=== PATIENT | female | born 1945 | race Caucasian/White ===

== ENCOUNTER 2018-10-09 21:12 | Emergency (ER) | payer MEDICARE, OTHER ==
[~2018-10-09] VITALS: Ht 165.1 cm; Wt 74.4 kg
[~2018-10-09 21:12] MED LIST: ALBU2.5V5 NEB; AZIT250T6 PO; BREO ELLIPTA 11 EACH IH; CLOP75TA PO; DABI150C PO; DIGO125T10 PO; DILT240C2 PO; DOXE50CA PO; DULO30CA44 PO; DULO60CA45 PO; IPRA4AER IH; LEVO50TA5 PO; METH500T7 PO; OXYC-411 PO; OXYC30TA64 PO; VENTOLIN HFA18 GM IH; [UNRECOGNIZED DRUG - REMARK]
[2018-10-09] MEDS ORDERED: DIPHTH,PERTUSS(ACELL),TET TOX 0.5 ML DISP.SYRIN. VAX IM ONE (22:30)
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
[2018-10-09 22:45] VITALS: BP 100/63
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
== END 2018-10-09 23:30 | disposition home or self-care (01) ==
LOC: ER 21:12
DX: S40.022A Contusion of left upper arm, initial encounter (principal); S09.90XA Unspecified injury of head, initial encounter; M25.532 Pain in left wrist; M54.2 Cervicalgia; R51 Headache; I48.91 Unspecified atrial fibrillation; J44.9 Chronic obstructive pulmonary disease, unspecified; I10 Essential (primary) hypertension; Z88.1 Allergy status to other antibiotic agents; Z91.040 Latex allergy status; W01.198A Fall on same level from slipping, tripping and stumbling with subsequent striking against other object, initial encounter; Y93.89 Activity, other specified; Y92.098 Other place in other non-institutional residence as the place of occurrence of the external cause; Y99.8 Other external cause status
CPT/HCPCS: 70450; 70486; 72125; 73110; 90471; 90715; 99285-25

== ENCOUNTER 2020-08-10 16:50 | Observation (INO) | payer MEDICARE ==
[~2020-08-10] VITALS: Ht 172.7 cm; Wt 80.1 kg
[~2020-08-10 16:50] MED LIST changes: +AMOX1TAB58 PO; +AMOX1TAB61 PO; +CEFD300C PO; +CHOL200078 PO; +DOCU-109 PO; +DOXY100T PO; +FLUT1BLS9 IH; +FURO20TA3 PO; +LEVO25TA4 PO; +METH-561 PO; -METH500T7 PO; +METO50TA4 PO; +MOME17SP NS; +ONDA4TAB7 PO; -OXYC-411 PO; +OXYC10TA PO; +OXYC1TAB20 PO; +PANT40TA77 PO; +POTA10TA6 PO; +RIVA20TA2 PO; +ROFL500T7 PO; +TRAZ-123 PO; +UMEC62.5 IH
[2020-08-10] MEDS ORDERED: diphenhydrAMINE 50 MG/ML VIAL IVP ONE (17:00)
[2020-08-10] MEDS ORDERED: DEXAMETHASONE SOD PHOS 20 MG/5 ML VIAL. IV ONE (17:00)
[2020-08-10] MEDS ORDERED: PROCHLORPERAZINE 10 MG/2 ML VIAL. IV ONE (17:00)
[2020-08-10] MEDS ORDERED: IV RINGERS,LACTATED 1000ML 1,000 ML IV SCH (17:00)
[2020-08-10] MEDS ORDERED: FLUORESCEIN OPHTH TEST STRIP. OD ONE (17:15)
[2020-08-10] MEDS ORDERED: TETRACAINE 0.5% OPHTH SOLUTION 4ML BOTTLE. OD ONE (17:15)
--- NOTE | 2020-08-10 17:26 | RAD ---
Exam Date: 08/10/2020 5:16 PM XR CHEST 1V Indication: Reason: headache / Spl. Instructions: / History: Comparison: February 02, 2020 FINDINGS/ IMPRESSION: The cardiac silhouette is enlarged without significant congestion. Prominent interstitial markings ar e improved compared to the prior exam and may reflect chronic lung disease, interstitial edema, or in terstitial pneumonia. Calcified granulomas are seen in the lungs. There is no focal consolidation, pleural effusion or pneumothorax. Electronically signed by: Mario Pearce MD (08/10/2020 5:23 PM) [facility]
--- NOTE | 2020-08-10 17:42 | PHYS DOC ---
Past Medical History Past Medical History: A-Fib, Arthritis, CHF, COPD, Fibromyalgia, GERD, Hy pertension, Hypothyroid, Other Additional Past Medical Histor: radicular neuropathy (DAVION ARRIETA DO) Past Surgical History: Cholecystectomy (DAVION ARRIETA DO) Smoking Status: Current Every Day Smoker Alcohol Use: None Drug Use: None (DAVION ARRIETA DO) General Adult EDM: Chief Complaint: HEADACHE HPI: HPI: 74-year-old female past medical history of hypertension, hyperlipidemia and A. fib on Pradaxa, CHF, COPD and hypothyroidism presents the ED with her daughter (patient consents to his/her/their knowledge and involvement in pts' medical care), complaints of right eye pain and headache that started around 1:30 AM and woke patient up. Initially thought something was in her right eye and that she was having a migraine (but reports this is the "worst headache"). Reports associated epiphora, decreased sleep, right nostril rhinorrhea/clear fluid. No relief with Tylenol, aspirin, caffeine pills around 2:30 AM-started to have associated nausea at 2:30am. Was able to fall asleep around 7:30 AM. Took oxycodone 20 mg immediate relief and has not had any pain relief. Now complains of blurry vision in her right eye. Unknown right eye baseline vision but reports no contact lenses or glasses. (DAVION ARRIETA DO) Review of Systems: Review of Systems: Constitutional: Denies fever or chills. [] Eyes: Denies eye discharge or complete vision loss HENT: Denies nasal congestion or sore throat. [] Respiratory: Denies cough or shortness of breath. [] Cardiovascular: Denies chest pain or edema. [] GI: Denies abdominal pain,vomiting, : Denies dysuria or hematuria Musculoskeletal: Denies back pain or joint pain. [] Integument: Denies rash or diaphoresis Neurologic: Denies neck stiffness, focal weakness or sensory changes. [] Psychiatric: Denies depression or anxiety. [] (DAVION ARRIETA DO) Heart Score: C/O Chest Pain: No Risk Factors: Risk Factors: DM, Current or recent (<one month) smoker, HTN, HLP, family history of CAD, obesity. Risk Scores: Score 0 - 3: 2.5% MACE over next 6 weeks - Discharge Home Score 4 - 6: 20.3% MACE over next 6 weeks - Admit for Clinical Observation Score 7 - 10: 72.7% MACE over next 6 weeks - Early Invasive Strategies (DAVION ARRIETA DO) Current Medications: Current Medications Medications (Trade) Dose Ordered Sig/Mel Start Time Stop Time Status Last Admin Dose Admin Dexamethasone Sodium Phosphate (Decadron) 10 mg 1X ONCE 08/10/20 17:00 08/10/20 17:04 DC Diphenhydramine HCl (Benadryl) 25 mg 1X ONCE 08/10/20 17:00 08/10/20 17:04 DC Fluorescein Sodium (Ful-Anabelle) 1 strip 1X ONCE 08/10/20 17:15 08/10/20 17:16 DC Prochlorperazine Edisylate (Compazine) 10 mg 1X ONCE 08/10/20 17:00 08/10/20 17:04 DC Ringer's Solution 1,000 ml @ 1,000 mls/hr Q1H 08/10/20 17:00 08/10/20 17:59 Tetracaine HCl (Tetracaine) 1 drop 1X ONCE 08/10/20 17:15 08/10/20 17:16 DC (DAVION ARRIETA DO) Allergies: Allergies: Allergies Coded Allergies Type Severity Reaction Last Updated Verified ciprofloxacin Allergy Intermediate Swelling 03/19/15 Yes latex Allergy Intermediate Rash 03/19/15 Yes levofloxacin Allergy Intermediate Swelling 03/19/15 Yes (DAVION ARRIETA DO) Physical Exam: PE: Constitutional: appears uncomfortable but not-toxic appearance. HENT: Normocephalic, atraumatic, no signs of head trauma Eyes: squinting in ed room-right eye only, right eye w/ conjunctival injection, minimally responsive right pupil when compared to left-cannot appreciate a hazy pupil, EOMI, no discharge, no active epiphora, no hyphema or hypopyon Neck: Normal range of motion, supple, Cardiovascular: S1/2 present, regular rhythm Lungs & Thorax: Speaking in full sentences, bilateral equal chest rise, no tachypnea or increased work of breathing Abdomen: soft, no tenderness, Skin: Warm, dry, no erythema, no rash. [] Extremities: No tenderness, no cyanosis, Neurologic: Alert and oriented X 3, no focal deficits noted. [] Psychologic: Affect normal, judgement normal, mood normal. [] (DAVION ARRIETA DO) PE: Constitutional: Well developed, well nourished, uncomfortable HENT: Normocephalic, atraumatic Eyes: Right periorbital edema, NO red reflex to right eye, EOMI, conjunctiva significantly infected to right eye with chemosis and hazy cornea, no discharge, no fluorescein uptake, Tonopen measurements of right eye 58, 54, 58 Neck: Normal range of motion, no tenderness, supple Lungs & Thorax: No respiratory distress, equal chest rise and fall Skin: Warm, dry, no erythema, no rash Neurologic: Alert and oriented X 3, no focal deficits noted Psychologic: Affect normal, judgment normal (MARY BRAR DO) EKG: EKG: A. fib at 120 bpm, no axis deviation, QTC 500, no obvious T wave inversions, ST elevations or ST depressions, no associated chest pain (DAVION ARRIETA DO) Radiology/Procedures: Radiology/Procedures: []IMAGING REPORT Signed PATIENT: CODY NINA ACCOUNT: [id number] : 1945 LOCATION: ER AGE: 74 SEX: F EXAM STATUS: PRE ER ORD. PHYSICIAN: DAVION ARRIETA DO REASON: headache PROCEDURE: PORTABLE CHEST 1V Exam Date: 08/10/2020 5:16 PM XR CHEST 1V Indication: Reason: headache / Spl. Instructions: / History: Comparison: February 02, 2020 FINDINGS/ IMPRESSION: The cardiac silhouette is enlarged without significant congestion. Prominent interstitial markings are improved compared to the prior exam and may reflect chronic lung disease, interstitial edema, or interstitial pneumonia. Calcified granulomas are seen in the lungs. There is no focal consolidation, pleural effusion or pneumothorax. Electronically signed by: Vanesa Pearce MD (08/10/2020 5:23 PM) [facility] DICTATED and SIGNED BY: VANESA PEARCE MD DATE: 08/10/20 [id number] (DAVION ARRIETA DO) Radiology/Procedures: PROCEDURE: PORTABLE CHEST 1V Exam Date: 08/10/2020 5:16 PM XR CHEST 1V Indication: Reason: headache / Spl. Instructions: / History: Comparison: February 02, 2020 FINDINGS/ IMPRESSION: The cardiac silhouette is enlarged without significant congestion. Prominent interstitial markings are improved compared to the prior exam and may reflect chronic lung disease, interstitial edema, or interstitial pneumonia. Calcified granulomas are seen in the lungs. There is no focal consolidation, pleural effusion or pneumothorax. Electronically signed by: Vanesa Pearce MD (08/10/2020 5:23 PM) [facility] PROCEDURE: CT HEAD & ORBITS WO CONTRAST EXAM: CT head and orbits without contrast INDICATION: Headache, right eye pain COMPARISON: CT head 10/09/2018 TECHNIQUE: Axial CT imaging through the head and cervical spine without intravenous contrast. Sagittal and coronal reformats were obtained. One or more of the following individualized dose reduction techniques were utilized for this examination: 1. Automated exposure control 2. Adjustment of the mA and/or kV according to patient size 3. Use of iterative reconstruction technique. FINDINGS: CT head: The ventricles and sulci are prominent. There is mild periventricular white matter hypoattenuation. Valdez-white matter differentiation is maintained. There is no intracranial hemorrhage, acute infarct, or mass lesion. The calvarium is intact. CT orbits: The exam is limited by motion artifact. Globes are intact. Extraocular muscles and optic nerve sheath complexes are unremarkable. There is mild right periorbital soft tissue swelling. There is no acute fracture. Findings of ch ronic sinusitis in the small left sphenoid sinus with osteitis and mild mucosal thickening is unchanged. The remaining paranasal sinuses and mastoid air cells are clear. IMPRESSION: 1. No acute intracranial abnormality. 2. Mild right periorbital soft tissue swelling. 3. Chronic left sphenoid sinusitis. Electronically signed by: Gaye White MD (08/10/2020 6:37 PM) [id number] (MARY BRAR DO) Course & Med Decision Making: Course & Med Decision Making Pertinent Labs and Imaging studies reviewed. (See chart for details) Pt presents with severe headache and red, right eye pain for more than 12 hours, acute closure glaucoma highly suspicious. RN unable to find tonopen in ed (I later found in rapid care while leaving ed and handed to Dr. Brar). At shift change pt was in CT and rn reported visual acuity. Floresceine/slade lamp exam still pending. I signed out pt to oncoming provider, Dr. Brar who was aware of ocular emergency and would call optho. Pt was stable at time of shift change. (DAVION ARRIETA DO) Course & Med Decision Making 1800- Sign out received from Dr. Arrieta for patient with sudden right eye pain and decreased vision which started at 0200. Hx of CHF and HTN. Labs and CT imaging ordered by Dr. Arrieta. Headache cocktail ordered. Patient pending laboratory and radiological imaging. Physical exam also concerning for glaucoma. Tetracaine and fluoreceine ordered by Dr. Arrieta but not yet performed. Patient seen and evaluated by myself. Tonopen meausurements elevated up to 58. Timolol 0.5% gtt given to right eye and acetazolamide PO also given. Discussed case with Dr. Peter (ophthalmology) regarding. Recommends to also add Alphagan gtt and give IV Mannitol. Given patient's past medical history, recommends that patient be admitted overnight for monitoring with continued eye gtts and acetazolamide and will see patient in office tomorrow to evaluate for need for laser treatment. Patient requiring admission for further evaluation and treatment. Discussed with Dr. Heart (hospitalist) who is in agreement with admission. Discussed findings and plan with patient and family, who acknowledge understanding and agreement. (MARY BRAR DO) Dragon Disclaimer: Bhavna Disclaimer: This electronic medical record was generated, in whole or in part, using a voice recognition dictation system. (DAVION ARRIETA DO) Departure Departure Impression: Primary Impression: Acute angle-closure glaucoma of right eye Disposition: ADMITTED INPATIENT (observation) Admitting Physician: KARL (Sly) (MARY BRAR DO) Condition: STABLE Referrals: SERGEY CAMPOS MD (PCP) Scripts Acetazolamide (ACETAZOLAMIDE) 250 Mg Tablet 250 MG PO QID for glaucoma for 7 Days, #28 TAB Prov: CASTLE,NIAL K III DO 08/11/20 Timolol Maleate (Timolol Maleate) 5 Ml Drops 1 DROP OU BID for glaucoma for 30 Days, #1 DROP Prov: CASTLE,NIAL K III DO 08/11/20 Brimonidine Tartrate (BRIMONIDINE TARTRATE) 5 Ml Drops 1 DROP OU Q8HRS for glaucoma for 30 Days, #1 DROP Prov: ISAAC MUSTAFAOz Radha ARLETTE REAL 08/11/20 Critical Care Time Critical care time was 30 minutes which includes time at bedside, spent in discussion of patient's care with specialists and/or family members, with interpretation of laboratory and/or radiological studies and is exclusive of procedures. (MARY BRAR DO) Critical Care Time Critical care time was [] minutes exclusive of procedures. (DAVION ARRIETA DO) DAVION ARRIETA DO Aug 10, 2020 17:42 MARY BRAR DO Aug 10, 2020 20:28
--- NOTE | 2020-08-10 18:11 | EKG ---
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
[2020-08-10 18:20] LABS: CALCIUM 9.4 mg/dL (8.5-10.1); CREATININE 1.1 mg/dL (0.6-1.0); GFR 48.6; POTASSIUM 3.8 mmol/L (3.5-5.1)
[2020-08-10 18:22] LABS: PROTHROMBIN TIME PATIENT 13.8 SEC (11.7-14.0)
[2020-08-10 18:25] LABS: ALBUMIN 3.4 g/dL (3.4-5.0); ALBUMIN/GLOBULIN RATIO 0.9 (1.0-1.7); TOTAL BILIRUBIN 0.3 mg/dL (0.2-1.0)
[2020-08-10 18:31] LABS: BASO % 0 % (0-3); EOS % 0 % (0-3); HEMATOCRIT 34.9 % (36.0-47.0); HEMOGLOBIN 11.6 g/dL (12.0-15.5); LYMPH # 0.8 x10^3/uL (1.0-4.8); LYMPH % 11 % (24-48); MEAN CORPUSCULAR HEMOGLOBIN 28 pg (25-35); MEAN CORPUSCULAR HGB CONC 33 g/dL (31-37); MEAN CORPUSCULAR VOLUME 86 fL (79-100); MONO # 0.2 x10^3/uL (0.0-1.1); MONO % 2 % (0-9); NEUT # 6.7 x10^3/uL (1.8-7.7); NEUT % 87 % (31-73); PLATELET COUNT 254 x10^3/uL (140-400); RED BLOOD COUNT 4.08 x10^6/uL (3.50-5.40); RED CELL DISTRIBUTION WIDTH 13.6 % (11.5-14.5); WHITE BLOOD COUNT 7.7 x10^3/uL (4.0-11.0)
--- NOTE | 2020-08-10 18:39 | RAD ---
EXAM: CT head and orbits without contrast INDICATION: Headache, right eye pain COMPARISON: CT head 10/09/2018 TECHNIQUE: Axial CT imaging through the head and cervical spine without intravenous contrast. Sagitta l and coronal reformats were obtained. One or more of the following individualized dose reduction techniques were utilized for this examinat ion: 1. Automated exposure control 2. Adjustment of the mA and/or kV according to patient size 3. Use of iterative reconstruction technique. FINDINGS: CT head: The ventricles and sulci are prominent. There is mild periventricular white matter hypoattenuation. G latoya-white matter differentiation is maintained. There is no intracranial hemorrhage, acute infarct, o r mass lesion. The calvarium is intact. CT orbits: The exam is limited by motion artifact. Globes are intact. Extraocular muscles and optic nerve sheath complexes are unremarkable. There is mild right periorbital soft tissue swelling. There is no acute fracture. Findings of chronic sinusitis in the small left sphenoid sinus with osteitis and mild mucos al thickening is unchanged. The remaining paranasal sinuses and mastoid air cells are clear. IMPRESSION: 1. No acute intracranial abnormality. 2. Mild right periorbital soft tissue swelling. 3. Chronic left sphenoid sinusitis. Electronically signed by: Gaye White MD (08/10/2020 6:37 PM) [id number]
[2020-08-10] MEDS ORDERED: TIMOLOL 0.5% OPHTH SOLUTION 5ML BOTTLE. OD ONE (18:45)
[2020-08-10] MEDS ORDERED: fentaNYL PF VIAL 100 MCG/2 ML VIAL IV ONE (18:45)
[2020-08-10] MEDS ORDERED: acetaZOLAMIDE 250 MG TABLET. PO ONE (18:45)
[2020-08-10] MEDS ORDERED: MANNITOL 25% 12.5 G/50 ML VIAL. IV ONE (19:00)
[2020-08-10 19:20] LABS: % EOS 1 % (0-5); % LYMPHS 8 % (24-48); % MONOS 2 % (0-10); % SEGS 89 % (35-66)
[2020-08-10 19:21] LABS: PLT ESTIMATE ADEQUATE (ADEQUATE)
[2020-08-10] MEDS ORDERED: MANNITOL 20% IV ONE (19:30)
[2020-08-10] MEDS ORDERED: fentaNYL PF VIAL 100 MCG/2 ML VIAL IV PRN (19:45)
[2020-08-10 20:19] LABS: BARBITURATES NEG (NEG); BENZODIAZEPINES NEG (NEG); CANNABINOIDS NEG (NEG); COCAINE NEG (NEG); METHADONE NEG (NEG); OPIATES POS (NEG); PHENCYCLIDINE NEG (NEG)
[2020-08-10 20:20] LABS: AMPHETAMINE/METHAMPHETAMINE NEG (NEG)
[2020-08-10] MEDS ORDERED: OXYC20TA PO (20:45)
[2020-08-10] MEDS: TIMOLOL 0.5% OPHTH SOLUTION 5ML BOTTLE. OU SCH (21:07)
--- NOTE | 2020-08-10 21:40 | NUR ---
ADMISSION NOTE Pt admitted to room 660 via ER cart. Pt ambulatory from cart, to bsc, then to bed. Pt is A/Ox4, MANZANITA. Pt reports pain in her right eye, that has been somewhat relieved by medications given in ER. Pt given call light and explained POC. Pt vu. Pt instructed not to get OOB without help d/t being fall risk. Pt vu, bed alarm on. Pt given soda and pudding for snack. Call light in reach. Will monitor.
[2020-08-10 21:52] VITALS: BP 146/96
[2020-08-10] MEDS ORDERED: BRIMONIDINE 0.2% OPHTH SOLUTION 5ML BOTTLE. OD SCH (22:00)
[2020-08-10] MEDS ORDERED: [UNRECOGNIZED DRUG - CODE] PO (22:15)
[2020-08-10] MEDS ORDERED: CETI10TA74 PO (22:15)
[2020-08-10] MEDS ORDERED: TIOT4MIS2 IH (22:15)
[2020-08-10] MEDS ORDERED: MAGN500C10 PO (22:15)
[2020-08-10] MEDS ORDERED: FLUT16SP NS (22:15)
[2020-08-10] MEDS ORDERED: NON FORMULARY ITEM (Albuterol Sulfate (Ventolin Hfa Inhaler) 2 PUFF) IH SCH (22:30)
[2020-08-10] MEDS ORDERED: ALBUTEROL SULFATE 2.5 MG/3 ML NEBU. NEB PRN (22:30)
[2020-08-10] MEDS ORDERED: ANTI-COAG MONITOR BY PHARMACY. MC PRN (22:45)
[2020-08-10] MEDS ORDERED: ONDANSETRON ODT 4 MG TAB.RAPDIS. PO PRN (22:45)
[2020-08-10] MEDS ORDERED: RIVAROXABAN 10 MG TABLET. PO SCH (23:00)
[2020-08-10] MEDS ORDERED: DOXEPIN HCL 25 MG CAPSULE. PO SCH (23:00)
[2020-08-10] MEDS ORDERED: DOCUSATE SODIUM 100 MG CAPSULE. PO SCH (23:00)
[2020-08-10] MEDS: acetaZOLAMIDE 250 MG TABLET. PO SCH (23:09)
[2020-08-10] MEDS: DULoxetine HCL 30 MG CAPSULE.DR PO SCH (23:09)
[2020-08-10] MEDS: BRIMONIDINE 0.2% OPHTH SOLUTION 5ML BOTTLE. OU SCH (23:11)
[2020-08-10] MEDS: oxyCODONE IR 5 MG TABLET PO PRN (23:14)
[2020-08-11 03:15] VITALS: BP 110/66
[2020-08-11] MEDS: oxyCODONE IR 5 MG TABLET PO PRN ×2 (05:52→16:42)
[2020-08-11] MEDS: BRIMONIDINE 0.2% OPHTH SOLUTION 5ML BOTTLE. OU SCH ×2 (05:53→14:07)
[2020-08-11] MEDS ORDERED: LEVOTHYROXINE 25 MCG TABLET. PO SCH (06:00)
[2020-08-11 07:00] VITALS: BP 126/77
[2020-08-11] MEDS: IPRATRPIUM/ALBUTEROL 0.5/2.5MG 3 ML NEBU. NEB SCH ×3 (07:24→15:14)
[2020-08-11] MEDS ORDERED: PANTOPRAZOLE 40 MG TABLET.DR. PO SCH (07:30)
[2020-08-11] MEDS ORDERED: BUDESONIDE 0.5 MG/2 ML NEBU. NEB SCH (08:00)
[2020-08-11] MEDS ORDERED: POTASSIUM CHLORIDE 10 MEQ TABLET.ER. PO SCH (08:00)
[2020-08-11] MEDS ORDERED: FUROSEMIDE 20 MG TABLET PO SCH (09:00)
[2020-08-11] MEDS ORDERED: FLUTICASONE 50MCG/NASAL SPRAY 16GM BOTTLE. NS SCH (09:00)
[2020-08-11] MEDS ORDERED: METOPROLOL SUCC 24HR ER 50 MG TAB.ER.24H. PO SCH (09:00)
[2020-08-11] MEDS ORDERED: NON FORMULARY ITEM (Duloxetine Hcl 60 MG) PO SCH (09:00)
[2020-08-11] MEDS ORDERED: CETIRIZINE HCL 10 MG TABLET. PO SCH (09:00)
[2020-08-11] MEDS ORDERED: ROFLUMILAST 500 MCG TABLET. PO SCH (09:00)
[2020-08-11] MEDS ORDERED: CALCIUM CARB/VIT D3 500/200 TABLET. PO SCH (09:00)
[2020-08-11] MEDS ORDERED: TIOTROPIUM BROMIDE 4 GM IH SCH (09:00)
[2020-08-11] MEDS ORDERED: MAGNESIUM OXIDE 400 MG TABLET PO SCH (09:00)
[2020-08-11] MEDS: DULoxetine HCL 30 MG CAPSULE.DR PO SCH (09:02)
[2020-08-11] MEDS: acetaZOLAMIDE 250 MG TABLET. PO SCH ×3 (09:02→16:38)
[2020-08-11] MEDS: TIMOLOL 0.5% OPHTH SOLUTION 5ML BOTTLE. OU SCH (09:04)
[2020-08-11] MEDS ORDERED: TIMO5DRO5 OU (10:52)
[2020-08-11] MEDS ORDERED: ACET250T2 PO (10:52)
[2020-08-11] MEDS ORDERED: BRIM5DRO4 OU (10:52)
[2020-08-11 11:00] VITALS: BP 118/56
--- NOTE | 2020-08-11 11:46 | SSS ---
ADMIT DATE: 08/11/2020 CHIEF COMPLAINT: Headache. HISTORY OF PRESENT ILLNESS: The patient is a pleasant 74-year-old female who presented to the ER with headache. She rated it 10/10. She took some home oxycodone that did not seem to help a lot. It was worse with moving, better with sitting still. While in the ER, she was diagnosed with acute angle glaucoma. She was placed on acetazolamide, now I am examined her on the medical floor where she is requesting discharge. We plan to have her go to ophthalmology hopefully later today. PAST MEDICAL HISTORY: AFib, arthritis, CHF, COPD, fibromyalgia, GERD, hypertension, hypothyroidism, radiculoneuropathy, cholecystectomy, tobacco abuse. ALLERGIES: CIPRO, LATEX AND LEVAQUIN. FAMILY HISTORY: Diabetes. SOCIAL HISTORY: She is retired. She does smoke. No drink or drugs. MEDICATIONS: Reviewed. Please refer to the MRAD. REVIEW OF SYSTEMS: GENERAL: No history of weight change, weakness or fevers. SKIN: No bruising, hair changes or rashes. EYES: No blurred, double or loss of vision. NOSE AND THROAT: No history of nosebleeds, hoarseness or sore throat. HEART: No history of palpitations, chest pain or shortness of breath on exertion. LUNGS: Denies cough, hemoptysis, wheezing or shortness of breath. GASTROINTESTINAL: Denies changes in appetite, nausea, vomiting, diarrhea or constipation. GENITOURINARY: No history of frequency, urgency, hesitancy or nocturia. NEUROLOGIC: Denies history of numbness, tingling, tremor or weakness. PSYCHIATRIC: No history of panic, anxiety or depression. ENDOCRINE: No history of heat or cold intolerance, polyuria or polydipsia. EXTREMITIES: Denies muscle weakness, joint pain, pain on walking or stiffness. PHYSICAL EXAMINATION: VITALS: Within normal limits and are stable. GENERAL: No apparent distress. Alert and oriented. HEENT: Normal cephalic atraumatic, external auditory canals are patent EYES: She has some slightly blurred vision on the right, but improved a lot from last night after the acetazolamide. MUSCULOSKELETAL: Well developed, well nourished, good range of motion ENDOCRINE: No thyromegaly was palpated LYMPHATICS: No cervical chain or axillary nodes were noted HEMATOPOIETIC: No bruising NECK: Supple, no JVD, no thyromegaly was noted. LUNGS: Clear to auscultation in all lung pastor without rhonchi or wheezing. HEART: RRR, S1, S2 present. Peripheral pulses intact, no obvious murmurs were noted. ABDOMEN: Soft, nontender. positive bowel sounds no organomegaly, normal bowel sounds. EXTREMITIES: Without any cyanosis, clubbing, or edema. Pedal pulses intact, Homans sign is negative. NEUROLOGIC: She has some decreased vision on the right. PSYCHIATRIC: Normal affect, normal mood. Stable. SKIN: No ulcerations or rashes, good skin turgor, no jaundice. VASCULAR: Good capillary refill, neurovascular bundle appears to be intact. LABORATORY DATA: White count 7. Electrolytes are normal. ASSESSMENT AND PLAN: Resolving acute angle glaucoma. The patient was admitted overnight for observation. This morning, she is doing great. We are going to discharge. I left a prescriptions for timolol eyedrops, acetazolamide tablets, brimonidine eyedrops. DISPOSITION: Home. ACTIVITY: As tolerated. DIET: Low sodium. DISCHARGE MEDICATIONS: Please see the MRAD. We will continue her home medications including albuterol, calcium, Zyrtec 10 a day, Cardizem 240 a day, docusate 100 p.o. at bedtime, doxepin 150 every day, Cymbalta 60 b.i.d., fluticasone, Lasix 20 a day, Synthroid 25 a day, Atrovent, magnesium oxide 500 daily, metoprolol XL 50 a day, Zofran 4 q.6 hours, oxycodone 20 q.6 hours p.r.n., Protonix 40 a day, potassium chloride 10 a day, Xarelto 1 p.o. at bedtime, Daliresp, Spiriva and trazodone 100 at bedtime. DISCHARGE DIAGNOSES: History of chronic obstructive pulmonary disease, asthma, osteoporosis, allergic rhinitis, hypertension, depression, anxiety, hypothyroidism, constipation, arthritis, chronic pain, gastroesophageal reflux disease and chronic anticoagulation. Total time [address]: Michael TID: [id number]
--- NOTE | 2020-08-11 12:56 | NUR ---
SW following. Discussed with RN, pt from home with daughter. Gets around fine per RN. Discharge order for home with self care. Pt needs to follow up with an [employer] science reader. RN advised no SW needs at this time.
[2020-08-11 15:00] VITALS: BP 99/53
--- NOTE | 2020-08-11 17:45 | NUR ---
Discharge Note: CODY NINA Discharge instructions and discharge home medications reviewed with Patient and Family Member and a copy given. All questions have been answered and understanding verbalized. The following instructions and handouts were given: discharge instructions, new prescriptions, education and follow up recommendation. Discontinued lines and drains: Peripheral IV discontinued intact. Patient discharged to Home or Self Care with Family Member via Wheelchair
[2020-08-11] MEDS ORDERED: RIVAROXABAN PO SCH (21:00)
== END 2020-08-11 17:45 | disposition home or self-care (01) ==
LOC: ER 16:50 → 6 SOUTH 20:54
PROVIDERS: ADMIT Family Medicine; ATTEND Family Medicine
DX: R51.9 Headache, unspecified (principal); I11.0 Hypertensive heart disease with heart failure; I50.9 Heart failure, unspecified; J44.9 Chronic obstructive pulmonary disease, unspecified; H40.211 Acute angle-closure glaucoma, right eye; I48.91 Unspecified atrial fibrillation; M81.0 Age-related osteoporosis without current pathological fracture; H04.209 Unspecified epiphora, unspecified side; J32.3 Chronic sphenoidal sinusitis; J84.10 Pulmonary fibrosis, unspecified; M79.7 Fibromyalgia; F41.9 Anxiety disorder, unspecified; F32.9 Major depressive disorder, single episode, unspecified; K21.9 Gastro-esophageal reflux disease without esophagitis; M19.90 Unspecified osteoarthritis, unspecified site; R79.1 Abnormal coagulation profile; E03.9 Hypothyroidism, unspecified; E78.5 Hyperlipidemia, unspecified; F17.200 Nicotine dependence, unspecified, uncomplicated; Z79.01 Long term (current) use of anticoagulants; Z90.49 Acquired absence of other specified parts of digestive tract
CPT/HCPCS: 36415; 70450; 70480; 71045; 80053; 80307; 85007; 85025; 85610; 85651; 85730; 86140; 93005; 94640; 94760; 96361; 96365; 96366; 96375; 99285; G0378; J0780; J1100; J1200; J3010; J7120; J7626; G0379